=== PATIENT | female | born 1990 | race Caucasian/White ===

== ENCOUNTER 2022-10-13 09:56 | Day surgery (SDC) | payer BC ==
[2022-10-11 15:37] VITALS: BMI 27.3
[~2022-10-13 09:56] MED LIST: Dexamethasone 4 mg/ml Vial ONE; Ketorolac Tromethamine 30 MG/ML VIAL ONE; Lidocaine 1% PF 5 ML VIAL ONE; Ondansetron PF 4 MG/2 ML Vial ONE; PROPOFOL 20 ML ONE
[2022-10-13 11:43] LABS: #Eosinphils 0.1 10x3/uL (0.0-0.5); #Monocytes 0.7 10x3/uL (0.0-1.1); #Neutrophils 6.1 10x3/uL (1.5-8.4); %Basophils 0.3 % (0.0-2.0); %Lymphocytes 28.2 % (18.0-47.0); %Neutrophils 63.3 % (40.0-75.0); Hemoglobin 13.8 g/dL (12.0-15.5); Mean Corpuscular HGB CONC 33.4 g/dL (32.0-36.0); Mean Corpuscular Hemoglobin 30.8 pg (27.0-33.0); Mean Corpuscular Volume 92.2 fl (81.6-98.3); Mean Platelet Volume 8.7 fl (7.4-10.4); Platelet Count 263 10x3/uL (150-450); RBC Distribution Width 11.7 % (11.5-14.5); Red Blood Cell (RBC) Count 4.48 10x6/uL (3.90-5.03); White Blood Cell (WBC) Count 9.7 10x3/uL (3.5-10.5)
[2022-10-13] MEDS ORDERED: Fentanyl 100 MCG/2 ML VIAL ONE (12:06)
[2022-10-13] MEDS ORDERED: Rocuronium Bromide 10 MG/ML (10ML VIAL) ONE (12:07)
[2022-10-13] MEDS ORDERED: Succinylcholine 200 MG/10 ml SYRINGE FS ONE (12:07)
[2022-10-13] MEDS ORDERED: Promethazine HCl 25 MG/ML VIAL ONE (12:09)
[2022-10-13] MEDS ORDERED: CEFAZOLIN 2 GM VIAL ONE (12:39)
== END 2022-10-13 14:34 | disposition home or self-care (01) ==
LOC: CSHSDC 09:56
PROVIDERS: ATTEND Obstetrics & Gynecology
PROC: 10D17ZZ Extraction of Products of Conception, Retained, Via Natural or Artificial Opening (ICD-10-PCS; principal; 2022-10-13)
DX: O02.1 Missed abortion (principal); Z87.59 Personal history of other complications of pregnancy, childbirth and the puerperium
CPT/HCPCS: 36415; 85025; 88305; J1100; J1885; J2405; J2550; J2704; J3010